=== PATIENT | female | born 1950 | race Caucasian/White ===

== ENCOUNTER 2017-05-18 06:02 | Day surgery (SDC) | payer MEDICAID ==
[~2017-05-18] VITALS: Ht 152.4 cm; Wt 66.8 kg
[~2017-05-18 06:02] MED LIST: SODIUM CHLORIDE 0.9% 1,000 ML IV ONE
[2017-05-18] MEDS ORDERED: CALC25 PO (06:38)
[2017-05-18] MEDS ORDERED: ASPI-989 PO (06:38)
[2017-05-18] MEDS ORDERED: CARV25 PO (06:38)
[2017-05-18] MEDS ORDERED: MULT-1259 PO ×2 (06:38→06:44)
[2017-05-18] MEDS ORDERED: AMLO-512 PO (06:38)
[2017-05-18] MEDS ORDERED: CLOP75 PO (06:38)
[2017-05-18] MEDS ORDERED: FURO40 PO (06:44)
[2017-05-18] MEDS ORDERED: HYDR-2924 PO (06:44)
[2017-05-18] MEDS ORDERED: MONT10TA21 PO (06:44)
[2017-05-18] MEDS ORDERED: GABA-529 PO (06:44)
[2017-05-18] MEDS ORDERED: TRAM50TA4 PO (06:44)
[2017-05-18] MEDS ORDERED: MIRALAX PO (06:44)
[2017-05-18] MEDS ORDERED: LOVA20 PO (06:44)
[2017-05-18] MEDS ORDERED: FAMO20 PO (06:44)
[2017-05-18] MEDS ORDERED: MIDAZOLAM HCL 2 MG/2 ML VIAL ONE (07:49)
[2017-05-18] MEDS ORDERED: FentaNYL CITRATE-PF 100 MCG/2 ML VIAL ONE (07:50)
[2017-05-18] MEDS ORDERED: MethylPREDNISolone SOD SUCC 125 MG/2 ML VIAL IVP ONE (08:45)
[2017-05-18] MEDS ORDERED: MethylPREDNISolone SOD SUCC 125 MG/2 ML VIAL ONE (08:51)
[2017-05-18] MEDS ORDERED: EPINEPHrine 1:1,000 [1 MG/ML] AMP ONE (15:51)
[2017-05-18] MEDS ORDERED: LIDOCAINE HCL 4% 50 ML SOLUTION ONE (15:51)
[2017-05-18] MEDS ORDERED: BENZOCAINE 20% 50 MCG/SPRAY 57 GM ONE (15:51)
[2017-05-18] MEDS ORDERED: LIDOCAINE HCL 2% 5 ML JELLY ONE (15:51)
[2017-05-18] MEDS ORDERED: OXYGEN THERAPY IH SCH (20:00)
== END 2017-05-18 10:30 | disposition home or self-care (01) ==
LOC: SURGERY 06:02
PROVIDERS: ATTEND Internal Medicine Critical Care Medicine
DX: J38.4 Edema of larynx (principal); B37.0 Candidal stomatitis; J18.9 Pneumonia, unspecified organism; E11.9 Type 2 diabetes mellitus without complications; D64.9 Anemia, unspecified; Z98.890 Other specified postprocedural states
CPT/HCPCS: 31623; 31624; 71010; 87015 ×2; 87070; 87077; 87101; 87186; 87205; 87220; 88108; 88312; J0171; J2250; J2930; J3010; J7030